=== PATIENT | male | born 1950 | race Caucasian/White ===

== ENCOUNTER 2017-08-26 12:28 | Emergency (ER) | payer OTHER, BC ==
[~2017-08-26] VITALS: Ht 170.2 cm; Wt 72.9 kg
[2017-08-26] MEDS ORDERED: KEFLEX500 MG PO (14:06)
[2017-08-26] MEDS ORDERED: NORCO 5/3251 TABLET PO (14:06)
[2017-08-26 15:23] VITALS: BP 147/85
== END 2017-08-26 15:33 | disposition home or self-care (01) ==
LOC: EME 12:28
DX: S68.611A Complete traumatic transphalangeal amputation of left index finger, initial encounter (principal); S62.651B Nondisplaced fracture of middle phalanx of left index finger, initial encounter for open fracture; W31.2XXA Contact with powered woodworking and forming machines, initial encounter; Z23 Encounter for immunization; I10 Essential (primary) hypertension; E78.5 Hyperlipidemia, unspecified; N40.0 Benign prostatic hyperplasia without lower urinary tract symptoms; Z87.891 Personal history of nicotine dependence
CPT/HCPCS: 73140; 99281; 99285; J0690; J3010; J7050

== ENCOUNTER → 2017-12-03 | Outpatient (CLI) | payer MEDICARE, BC ==
[~2017-12-03] MED LIST: KEFLEX500 MG PO; NORCO 5/3251 TABLET PO
== END | disposition home or self-care (01) ==
LOC: CDC 14:10
DX: Z01.810 Encounter for preprocedural cardiovascular examination (principal); R94.31 Abnormal electrocardiogram [ECG] [EKG]
CPT/HCPCS: 93000